=== PATIENT | female | born 1975 | race Two or more races ===

== ENCOUNTER 2022-10-16 22:48 | Emergency (ER) | payer SELFPAY ==
[~2022-10-16] VITALS: Ht 144.8 cm; Wt 79.8 kg
--- NOTE | 2022-10-16 23:20 | NUR ---
TO ER BED 1. [id number] FROM HOME FOR WITNESS SEIZURE. PT IS ALERT AND ORIENTED. RR EVEN AND NONLABORED. CONNECTED TO MONITOR. SEIZURE PRECAUTIONS IN PLACE.
--- NOTE | 2022-10-16 23:24 | NUR ---
URINE SAMPLE COLLECTED
[2022-10-16] MEDS ORDERED: LEVETIRACETAM (500MG) 500 MG in IV NS 0.9% 100 ML IV SCH (23:30)
--- NOTE | 2022-10-16 23:47 | NUR ---
TIRE MOLD ENGRAVER AT PT'S BEDSIDE
--- NOTE | 2022-10-16 23:55 | NUR ---
[facility]
[2022-10-16] MEDS ORDERED: LEVETIRACETAM (500MG) 500 MG/5 ML VIAL IV ONE (23:56)
--- NOTE | 2022-10-17 00:01 | NUR ---
ENDODONTIST AT PT'S BEDSIDE
[2022-10-17 00:19] LABS: BASOPHILS % (AUTO) 0.5 % (0.0-2.0); EOSINOPHILS % (AUTO) 3.5 % (0.0-6.0); HEMATOCRIT 34 % (33-45); HEMOGLOBIN 10.9 g/dL (11.5-14.8); LYMPHOCYTES % (AUTO) 45.7 % (20.0-44.0); MEAN CORPUSCULAR HGB CONC 33 g/dl (31.0-36.0); MEAN CORPUSCULAR VOLUME 89 fL (82-100); MONOCYTES # (AUTO) 0.3 K/uL (0.1-1.30); MONOCYTES % (AUTO) 7.9 % (2.0-12.0); NEUTROPHILS # (AUTO) 1.9 K/uL (1.8-8.9); NEUTROPHILS % (AUTO) 42.4 % (43.0-81.0); PLATELET COUNT (AUTO) 198 K/uL (150-450); RED BLOOD CELL COUNT(AUTO) 3.77 MIL/uL (4.0-5.2); WHITE BLOOD COUNT (AUTO) 4.4 K/uL (4.3-11.0)
--- NOTE | 2022-10-17 00:20 | NUR ---
IV LINE ESTABLISHED, [id number]
[2022-10-17 00:28] LABS: CALCIUM, SERUM 8.3 mg/dL (8.5-10.1); CARBON DIOXIDE 27 mmol/L (21-32); CHLORIDE 106 mmol/L (98-107); CREATININE 0.9 mg/dL (0.6-1.3); GLUCOSE 104 mg/dL (74-106); POTASSIUM 3.7 mmol/L (3.5-5.1); SODIUM SERUM 139 mmol/L (136-145); UREA NITROGEN, BLOOD 17 mg/dL (7-18)
[2022-10-17 00:33] LABS: ALANINE AMINOTRANSFERASE 11 U/L (12-78); ALKALINE PHOSPHATASE 57 U/L (46-116); ASPARTATE AMINOTRANSFERASE 13 U/L (15-37); BILIRUBIN,DIRECT 0.1 mg/dL (0.0-0.2); BILIRUBIN,TOTAL 0.1 mg/dL (0.2-1.0); TOTAL PROTEIN, SERUM 6.4 g/dL (6.4-8.2)
[2022-10-17 00:37] LABS: ALCOHOL, BLOOD < 3 mg/dL (0-0)
[2022-10-17 01:00] LABS: BILIRUBIN,URINE NEGATIVE (NEGATIVE); COLOR,URINE YELLOW (YELLOW); LEUKOCYTE ESTERASE ,URINE NEGATIVE (NEGATIVE); NITRITE, URINE NEGATIVE (NEGATIVE); PH,URINE 6.5 (5.0-8.0); PROTEIN,URINE NEGATIVE (NEGATIVE); UGLUCOSE NEGATIVE (NEGATIVE); UROBILINOGEN,URINE 0.2 EU/dL (0.2)
[2022-10-17] MEDS ORDERED: LEVETIRACETAM (500MG) 500 MG in IV NS 0.9% 100 ML IV SCH (01:00)
[2022-10-17] MEDS ORDERED: LamoTRIgine 25 MG TABLET PO SCH (01:00)
[2022-10-17] MEDS ORDERED: VALPROATE 250 MG in IV D5W 100 ML IV SCH (01:00)
[2022-10-17] MEDS ORDERED: VALPROIC ACID 250 MG/5 ML UDC ONE (01:03)
[2022-10-17] MEDS ORDERED: LEVETIRACETAM (500MG) 500 MG/5 ML VIAL IV ONE (01:03)
[2022-10-17 01:10] LABS: BACTERIA,URINE Rare /HPF (None Seen); SQUAMOUS EPITHELIAL CELL,UR Few /HPF (None Seen); WBC,URINE 0-2 /HPF (0-3)
[2022-10-17] MEDS ORDERED: LamoTRIgine 25 MG TABLET ONE ×2 (01:24→01:25)
[2022-10-17] MEDS ORDERED: DIVALPROEX SODIUM 250 MG TABLET.DR PO ONE ×2 (01:27→01:30)
--- NOTE | 2022-10-17 02:04 | NUR ---
IV removed. Catheter intact and site benign. Pressure and 4x4 applied to site. No bleeding noted.
--- NOTE | 2022-10-17 02:05 | NUR ---
Patient discharged to home in stable condition. Written and verbal after care instructions given. Patient verbalizes understanding of instruction.
[2022-10-17 02:19] VITALS: BP 118/72
== END 2022-10-17 02:21 | disposition home or self-care (01) ==
LOC: ER 22:56
DX: G40.909 Epilepsy, unspecified, not intractable, without status epilepticus (principal)
CPT/HCPCS: 99285; 93005; 71045; 70450; 84703; 81001; 36415; 80307; 96365; 96366; 85025; 80048; 80076; 85730; 80320; J7030; J1953; G0480; J3490; J7060

== ENCOUNTER 2023-02-20 19:02 | Emergency (ER) | payer MEDICAID ==
[~2023-02-20] VITALS: Ht 157.5 cm; Wt 88.0 kg
--- NOTE | 2023-02-20 19:35 | NUR ---
BIBS CC RT NECK AND LEFT HIP PAIN. +WEAKNESS ON LT LEG (1MONTH).
[2023-02-20] MEDS ORDERED: ACETAMINOPHEN ES 500 MG TABLET ONE (19:57)
[2023-02-20] MEDS ORDERED: METHOCARBAMOL (500MG) 500 MG TABLET ONE (19:58)
[2023-02-20] MEDS ORDERED: ACETAMINOPHEN ES 500 MG TABLET PO ONE (20:00)
[2023-02-20] MEDS ORDERED: METHOCARBAMOL (500MG) 500 MG TABLET PO ONE (20:00)
--- NOTE | 2023-02-20 20:11 | NUR ---
PATIENT TAKEN TO CT VIA [facility]
[2023-02-20] MEDS ORDERED: METH-647 PO (21:26)
[2023-02-20] MEDS ORDERED: HYDROCODONE/APAP 5/325MG TABLET PO ONE (21:30)
[2023-02-20] MEDS ORDERED: HYDROCODONE/APAP 5/325MG TABLET ONE (21:35)
--- NOTE | 2023-02-20 21:54 | NUR ---
Patient discharged to home in stable condition. Written and verbal after care instructions given WITH INSPECTOR OUTSIDE [employer]RIBUTION ID: [id number] Patient verbalizes understanding of instruction.
[2023-02-20 21:56] VITALS: BP 115/70
== END 2023-02-20 21:54 | disposition home or self-care (01) ==
LOC: ER 19:07
DX: M54.41 Lumbago with sciatica, right side (principal); M50.30 Other cervical disc degeneration, unspecified cervical region; M51.36 Other intervertebral disc degeneration, lumbar region; G40.909 Epilepsy, unspecified, not intractable, without status epilepticus; Z88.1 Allergy status to other antibiotic agents
CPT/HCPCS: 72125-TC; 72131-TC